=== PATIENT | female | born 1965 | race Caucasian/White ===

== ENCOUNTER 2018-10-24 10:13 | Observation (INO) ==
--- NOTE | 2018-10-24 10:56 | ED ---
HPI General Chief complaint: Chest Pain Stated complaint: Cardiac Complaint Time Seen by Provider: 10/24/18 10:37 Source: patient and RN notes reviewed Mode of arrival: ambulatory History of Present Illness HPI narrative: 53yF sent in from [facility] for abnormal EKG. The patient reports several weeks of substernal/ left-sided chest "pressure" which occurs on exertion, lasts for several minutes and improves with rest, radiates to her left shoulder, associated with dyspnea, palpitations, and lightheadedness. Denies fever, cough, or nausea/ vomiting. Family history significant for father with CAD (uncertain age). Related Data Home Medications Medication Instructions Recorded Confirmed Depakote 400 mg PO BID 10/24/18 10/24/18 cariprazine [Vraylar] 4.5 mg PO DAILY 10/24/18 10/24/18 hydroxyzine pamoate [Vistaril] 50 mg PO QID PRN 10/24/18 10/24/18 levothyroxine 200 mcg PO DAILY 10/24/18 10/24/18 trazodone 200 mg PO HS PRN 10/24/18 10/24/18 Allergies Allergy/AdvReac Type Severity Reaction Status Date / Time No Known Allergies Allergy Verified 10/24/18 10:23 Review of Systems ROS: all other systems reviewed are negative [facility] Medical History Medical History Aborted ectopic (Acute) Bipolar disorder (Acute) COPD (chronic obstructive pulmonary disease) (Acute) Surgical History Surgical History History of cholecystectomy (Acute) Social History Social History Substance History: No History of Abuse Smoking Status: Current every day smoker Tobacco Type: Cigarettes How Often Do You Have a Drink Containing Alcohol: Never Recent Travel in [facility] within the Last 8 Weeks: No Recent Out of Country Travel within the Last 8 Weeks: No Immunization History Tetanus Immunization: Unsure Exam Const General: healthy appearing and no acute distress HENMT Face and sinus: normal facial exam Eyes General: appearance normal, both eyes and all related structures Chest Chest: normal inspection of the chest Resp Effort & Inspection: normal respiratory effort Auscultation: no rhonchi and no wheezes Cardio Rate: regular rate Rhythm: regular rhythm GI Inspection: non-distended Palpation: soft and nontender Skin General: no rashes or lesions noted Neuro General: alert, awake, oriented x3 and no focal motor deficits Psych Affect: normal affect Course Initial Documented Vital Signs Temperature 98.5 F 10/24/18 10:20 Pulse Rate 75 10/24/18 10:20 Respiratory Rate 18 10/24/18 10:20 Blood Pressure 125/76 10/24/18 10:20 Pulse Oximetry 100 10/24/18 10:20 Last Documented Vital Signs Temperature 98.5 F 10/24/18 10:20 Pulse Rate 60 10/24/18 12:07 Respiratory Rate 20 10/24/18 12:07 Blood Pressure 116/56 L 10/24/18 12:07 Pulse Oximetry 96 10/24/18 12:07 Clinical Decision Support HEART Score Questions History: Moderately suspicious EKG: Non-specific repolarization disturbance Age: 45-64 years Risk Factors: 1-2 Risk Factors Initial Troponin: Normal Limit Heart Score HEART Score: 4 Medical Decision Making [facility] Narrative Medical decision making narrative: Assessment: 53yF presenting with chest pain and abnormal EKG Plan: EKG and monitor Labs CXR Addendum: Patient reports no chest pain at present, trop negative x 1 but abnormal EKG. HEART score 4. I explained these results to the patient as well as plan to keep for observation in center. She understands and agrees with plan. Medical Screen Exam Complete: Yes Emergency Medical Condition: Yes Differential Diagnosis Differential Diagnosis: Differential diagnosis includes, but is not limited to: ACS, arrhythmia, pneumonia, pleural effusion, pleuritis Lab Data Lab results reviewed: Yes I reviewed the patient's lab results. Result diagrams: 10/24/18 10:49 10/24/18 10:49 Lab Results 10/24/18 10/24/18 Range/Units 10:49 10:49 WBC 7.6 (4.0-11.0) th/mm3 RBC 4.15 (4.00-5.30) mil/mm3 Hgb 14.4 (11.6-15.3) gm/dL Hct 41.2 (35.0-46.0) % MCV 99.1 (80.0-100.0) fL MCH 34.6 H (27.0-34.0) pg MCHC 34.9 (32.0-36.0) % RDW 15.8 (11.6-17.2) % Plt Count 231 (150-450) th/mm3 MPV 9.0 (7.0-11.0) fL Neut % (Auto) 56.7 (16.0-70.0) % Lymph % (Auto) 31.8 (9.0-44.0) % [place] % (Auto) 3.7 (0.0-8.0) % Eos % (Auto) 7.6 H (0.0-4.0) % Baso % (Auto) 0.2 (0.0-2.0) % Neut # (Auto) 4.3 (1.8-7.7) th/mm3 Lymph # (Auto) 2.4 (1.0-4.8) th/mm3 [place] # (Auto) 0.3 (0.0-0.9) th/mm3 Eos # (Auto) 0.6 H (0.0-0.4) th/mm3 Baso # (Auto) 0.0 (0.0-0.2) th/mm3 WBC Differential . Differential Comment Auto diff final Sodium 138 (136-145) meq/L Potassium 3.8 (3.5-5.1) meq/L Chloride 101 (98-107) meq/L Carbon Dioxide 29.3 (21.0-32.0) meq/L Anion Gap 8 (5-15) meq/L BUN 11 (7-18) mg/dL Creatinine 1.47 H (0.50-1.00) mg/dL Estimated GFR 37 L (>89) mL/min Random Glucose 109 H (74-106) mg/dL Calcium 9.1 (8.5-10.1) mg/dL Total Bilirubin 0.7 (0.2-1.0) mg/dL AST 28 (15-37) U/L ALT 19 (10-53) U/L Alkaline Phosphatase 91 (45-117) U/L Troponin I Less than 0.02 L (0.02-0.05) ng/mL Total Protein 8.3 H (6.4-8.2) g/dL Albumin 4.7 (3.4-5.0) g/dL Imaging Data Radiologist's impression: Chest X-Ray 10/24/18 10:28 CONCLUSION: No acute disease ECG Data Attestation: I personally reviewed and interpreted this ECG as follows: Interpretation: Rate: 65 BPM Rhythm: Sinus [place]: Normal Intervals: Normal intervals, no blocks, QTc 200 ms Q waves: II, III, aVF T waves: Inverted in V3-V6, aVL ST segments: <1 mm depression in V4-V6 Impression: Abnormal EKG, no dynamic changes between 10:28 and 10:41 EKGs. No previous EKG available for comparison. Discharge Plan Discharge Disposition Patient Disposition: ED Admit(ED Internal Use Only) Discharge Condition Condition: Stable Discharge Details Diagnosis: Chest pain Physicians Team ED Provider: Piedad Ramos Primary Care Provider: Primary Care Luz Elena Winchester Rxs /Orders / Referrals /Forms Prescriptions: No Action hydroxyzine pamoate [Vistaril] 50 mg Capsule 50 mg PO QID PRN (Reason: Anxiety) RF: 0 trazodone 100 mg Tablet 200 mg PO HS PRN (Reason: Insomnia) RF: 0 levothyroxine 200 mcg Tablet 200 mcg PO DAILY RF: 0 cariprazine [Vraylar] 4.5 mg Capsule 4.5 mg PO DAILY RF: 0 Depakote 200 mg 400 mg PO BID RF: 0 Discharge Instructions Patient Printed Instructions: Chest Pain (ED) Discharge Interventions Interventions: Vital Signs Last Done: 10/24/18 10:56 Status ED Status: Admitted Observation Patient
[2018-10-24 10:58] LABS: Baso % (Auto) 0.2 % (0.0-2.0); Eos # (Auto) 0.6 th/mm3 (0.0-0.4); Eos % (Auto) 7.6 % (0.0-4.0); Hematocrit 41.2 % (35.0-46.0); Hemoglobin 14.4 gm/dL (11.6-15.3); Lymph # (Auto) 2.4 th/mm3 (1.0-4.8); Lymph % (Auto) 31.8 % (9.0-44.0); Mean Corpuscular HGB Conc 34.9 % (32.0-36.0); Mean Corpuscular Hemoglobin 34.6 pg (27.0-34.0); Mean Corpuscular Volume 99.1 fL (80.0-100.0); Mono # (Auto) 0.3 th/mm3 (0.0-0.9); Mono % (Auto) 3.7 % (0.0-8.0); Neut # (Auto) 4.3 th/mm3 (1.8-7.7); Neut % (Auto) 56.7 % (16.0-70.0); Platelet Count 231 th/mm3 (150-450); Red Blood Count 4.15 mil/mm3 (4.00-5.30); Red Cell Distribution Width 15.8 % (11.6-17.2); White Blood Count 7.6 th/mm3 (4.0-11.0)
--- NOTE | 2018-10-24 11:08 | XR ---
EXAM DATE: 10/24/2018 11:01 AM EST AGE/SEX: 53 years / Female INDICATIONS: Chest pain x 3 days. CLINICAL DATA: This is the patient's initial encounter. Patient reports that signs and symptoms have been present for 1 day and indicates a pain score of 4/10. MEDICAL/SURGICAL HISTORY: None. None. COMPARISON: No prior exams available for comparison. FINDINGS: A single AP view of the chest demonstrates the lungs to be symmetrically aerated without evidence of mass, infiltrate or effusion. The cardiomediastinal contours are unremarkable. Osseous structures a re intact. CONCLUSION: No acute disease Electronically signed by: Jaime Davis MD Board Certified Radiologist 10/24/2018 11:07 AM EST
[2018-10-24 11:20] LABS: Alanine Aminotransferase 19 U/L (10-53); Albumin 4.7 g/dL (3.4-5.0); Anion Gap 8 meq/L (5-15); Aspartate Aminotransferase 28 U/L (15-37); Blood Urea Nitrogen 11 mg/dL (7-18); Calcium 9.1 mg/dL (8.5-10.1); Carbon Dioxide 29.3 meq/L (21.0-32.0); Chloride 101 meq/L (98-107); Glomerular Filtration Rate 37 mL/min (>89); Glucose,Random 109 mg/dL (74-106); Potassium 3.8 meq/L (3.5-5.1); Sodium 138 meq/L (136-145)
[2018-10-24 11:24] LABS: Alkaline Phosphatase 91 U/L (45-117); Total Protein 8.3 g/dL (6.4-8.2)
[2018-10-24] MEDS ORDERED: Acetaminophen 500 MG Tablet PO PRN (12:13)
--- NOTE | 2018-10-24 14:50 | P.HPCA ---
History of Present Illness Primary Care Physician: [facility] Chief Complaint: Abnormal EKG History of Present Illness: 53-year-old female with history of COPD, bipolar, hypothyroid is him, and continues to smoke presents to the emergency room as directed by her primary care provider. Recently became insured and was establishing with a new primary care provider. Reports increase dyspnea, productive cough with green sputum, and more intense feeling of "an elephant sitting on my chest" for 3 weeks. Intense substernal pressure occurs generally after a "coughing fit" generally lasting 30 minutes. Associated symptoms include dizziness, slight fever, and chills. Decreased tobacco use to half pack daily down from 1 pack daily. During PCP visit an EKG found to be abnormal and was directed to go to the ER. No known coronary artery disease, past myocardial infarction, hypertension, hyperlipidemia, or diabetes. Not taken any medications for 6 months. Past cardiac testing None Social history No known coronary artery disease, hypertension, hyperlipidemia, or diabetes. Lifelong smoker. Current 1/2 pack day smoker, decreased from 1 pack daily. denies any alcohol or recreational drug use. Endorses sedentary lifestyle due to respiratory status. Family history Noncontributory for early onset cardiovascular disease. - Diagnosis (1) Chest pain (2) Tobacco use (3) COPD (chronic obstructive pulmonary disease) (4) Hypothyroidism Review of Systems All other systems reviewed negative except as stated in HPI PMFSH - History History Provided By: Patient - Medical History Medical History: Medical History (Last Updated 10/24/18 @ 15:07 by YVETTE Williamson) Aborted ectopic Bipolar disorder COPD (chronic obstructive pulmonary disease) Hypothyroidism Morbidly obese Spinal stenosis - Surgical History Surgical History: Surgical History (Last Reviewed 10/24/18 @ 10:58 by Piedad Ramos DO) History of cholecystectomy - Tobacco History Second Hand Smoke Exposure: Yes Tobacco Use In Past 30 Days: Yes (10 Cigarettes per day) Smoking Status: Current every day smoker Tobacco Type: Cigarettes Packs Per Day: 0.5 - Alcohol History How Often Do You Have a Drink Containing Alcohol: Never (quit drinking 2 years ago, reports past alcohol abuse) - Substance Use History Substance History: Active Abuse - Substance Use Type Marijuana Status: Active Route Used: Inhalation Frequency: Once a week Reason for Use: Calm Down, Sleep - Travel History Recent Travel in the [facility] Within the Last 8 Weeks: No Recent Travel Out of the Country Within the Last 8 Weeks: No - Immunization History Tetanus Immunization: Unsure Medications and Allergies Active Medications: Active Medications Acetaminophen (Tylenol) 500 mg PO Q4H PRN PRN Reason: HEADACHE Nitroglycerin (Nitrostat Sl) 0.4 mg SL Q5M PRN PRN Reason: CHEST PAIN Ondansetron HCl (Zofran Inj) 4 mg IV.PUSH Q6H PRN PRN Reason: NAUSEA Sodium Chloride (Ns Flush) 2 ml IV.FLUSH PRN PRN PRN Reason: FLUSH AFTER USING IV ACCESS Sodium Chloride (Ns Flush) 2 ml IV.FLUSH BID JEREMIAH Allergies Allergy/AdvReac Type Severity Reaction Status Date / Time No Known Allergies Allergy Verified 10/24/18 10:23 Home Medications Medication Instructions Recorded Confirmed Type Depakote 400 mg PO BID 10/24/18 10/24/18 History cariprazine [Vraylar] 4.5 mg PO DAILY 10/24/18 10/24/18 History hydroxyzine pamoate [Vistaril] 50 mg PO QID PRN 10/24/18 10/24/18 History levothyroxine 200 mcg PO DAILY 10/24/18 10/24/18 History trazodone 200 mg PO HS PRN 10/24/18 10/24/18 History Exam Vital signs: Vital Signs 10/24/18 10:20 10/24/18 10:43 10/24/18 10:56 Temperature 98.5 F Pulse Rate 75 71 67 Respiratory Rate 18 13 20 Blood Pressure 125/76 158/81 H 139/75 Pulse Oximetry 100 97 97 10/24/18 11:35 10/24/18 12:07 10/24/18 13:35 Temperature 98.0 F Pulse Rate 63 60 59 L Respiratory Rate 20 20 16 Blood Pressure 127/75 116/56 L 103/60 Pulse Oximetry 99 96 99 Intake & Output 10/23/18 10/24/18 10/24/18 18:59 06:59 18:59 Weight 105.233 kg Narrative: GENERAL: Alert WN, WD, NAD, pleasant, morbidly obese, female who appears older than stated age HEAD: NC, AT EYES: Sclera clear, conjunctiva without injection, pupils equal and round ENT: Mucous membranes pink and moist NECK: Supple, no masses, trachea midline CV: Regular bradycardic rhythm without murmur, rub, gallop, no JVD, S1-S2. RESP: Diminished lungs throughout bilateral, expiratory wheeze upper lobes, no crackles. Symmetrical chest rise, nonlabored, becomes dyspneic during conversation however able to speak in full sentences ABD: Soft, NT, ND, no masses, positive bowel tones EXT: Pulses +2x4, no dependent edema MS: Normal tone x4 extremities, nontender, no obvious deformities, full range of motion, difficult for self repositioning due to body habitus NEURO: Motor strength 5 PSYCH: A+O x3, flat affect, appropriate speech, mood, insight and judgment SKIN: Normal turgor, normal texture, no lesions, no rashes, brisk cap refill, even hair distribution, solar damage Results 10/24/18 10:49 10/24/18 10:49 Cardiac Enzymes 10/24/18 10/24/18 Range/Units 10:49 13:45 AST 28 (15-37) U/L Troponin I Less than 0.02 L Less than 0.02 L (0.02-0.05) ng/mL CBC 10/24/18 Range/Units 10:49 WBC 7.6 (4.0-11.0) th/mm3 RBC 4.15 (4.00-5.30) mil/mm3 Hgb 14.4 (11.6-15.3) gm/dL Hct 41.2 (35.0-46.0) % Plt Count 231 (150-450) th/mm3 Neut # (Auto) 4.3 (1.8-7.7) th/mm3 Lymph # (Auto) 2.4 (1.0-4.8) th/mm3 [place] # (Auto) 0.3 (0.0-0.9) th/mm3 Eos # (Auto) 0.6 H (0.0-0.4) th/mm3 Baso # (Auto) 0.0 (0.0-0.2) th/mm3 Comprehensive Metabolic Panel 10/24/18 Range/Units 10:49 Sodium 138 (136-145) meq/L Potassium 3.8 (3.5-5.1) meq/L Chloride 101 (98-107) meq/L Carbon Dioxide 29.3 (21.0-32.0) meq/L BUN 11 (7-18) mg/dL Creatinine 1.47 H (0.50-1.00) mg/dL Calcium 9.1 (8.5-10.1) mg/dL AST 28 (15-37) U/L ALT 19 (10-53) U/L Alkaline Phosphatase 91 (45-117) U/L Total Protein 8.3 H (6.4-8.2) g/dL Albumin 4.7 (3.4-5.0) g/dL Intake and Output 10/23/18 10/24/18 10/24/18 22:59 06:59 14:59 Other: Weight 105.233 kg Patient Weight 10/25/18 06:59 Weight 105.233 kg - Imaging and Cardiology Imaging: Impressions Chest X-Ray 10/24/18 10:28 CONCLUSION: No acute disease EKG interpretations - Dysrhythmias Sinus rhythms and dysrhythmias: sinus bradycardia (< 50 bpm) (Low voltage, axis indeterminate, right bundle branch block, first-degree AV block) Caprini VTE Risk Assessment Caprini VTE Risk Assessment: No/Low Risk (score <= 1) Caprini Risk Assessment Model: Point Value = 1 Point Value = 2 Point Value = 3 Point Value = 5 Age 41-60 Minor surgery BMI > 25 kg/m2 Swollen legs Varicose veins or History of unexplained or recurrent spontaneous Oral contraceptives or hormone replacement Sepsis (< 1 month) Serious lung disease, including pneumonia (< 1 month) Abnormal pulmonary function Acute myocardial infarction Congestive heart failure (< 1 month) History of inflammatory bowel disease Medical patient at bed rest Age 61-74 Arthroscopic surgery Major open surgery (> 45 min) Laparoscopic surgery (> 45 min) Malignancy Confined to bed (> 72 hours) Immobilizing plaster cast Central venous access Age >= 75 History of VTE Family history of VTE Factor V Leiden Prothrombin [id number] Lupus anticoagulant Anticardiolipin antibodies Elevated serum homocysteine Heparin-induced thrombocytopenia Other congenital or acquired thrombophilia Stroke (< 1 month) Elective arthroplasty Hip, pelvis, or leg fracture Acute spinal cord injury (< 1 month) Prophylaxis Regimen: Total Risk Factor Score Risk Level Prophylaxis Regimen 0-1 Low Early ambulation 2 Moderate Order ONE of the following: *Sequential Compression Device (SCD) *Heparin 5000 units SQ BID 3-4 Higher Order ONE of the following medications: *Heparin 5000 units SQ TID *Enoxaparin/Lovenox 40 mg SQ daily (WT < 150 kg, CrCl > 30 mL/min) *Enoxaparin/Lovenox 30 mg SQ daily (WT < 150 kg, CrCl > 10-29 mL/min) *Enoxaparin/Lovenox 30 mg SQ BID (WT < 150 kg, CrCl > 30 mL/min) AND/OR *Sequential Compression Device (SCD) 5 or more Highest Order ONE of the following medications: *Heparin 5000 units SQ TID (Preferred with Epidurals) *Enoxaparin/Lovenox 40 mg SQ daily (WT < 150 kg, CrCl > 30 mL/min) *Enoxaparin/Lovenox 30 mg SQ daily (WT < 150 kg, CrCl > 10-29 mL/min) *Enoxaparin/Lovenox 30 mg SQ BID (WT < 150 kg, CrCl > 30 mL/min) AND *Sequential Compression Device (SCD) Assessment and Plan - Assessment (1) Chest pain Code(s): R07.9 - Chest pain, unspecified Status: Acute Plan: Admitted chest pain center. Rule out ACS with 3 sets of EKGs and cardiac enzymes. Will be seen and evaluated by Dr. Lor Nation. First 2 troponins unremarkable. No EKG to compare. No current chest pain. Likely will proceed with Lexiscan in a.m. Further disposition to follow after evaluation by prop drawer. (2) Tobacco use Code(s): Z72.0 - Tobacco use Status: Chronic Plan: Strongly encouraged and stressed importance of tobacco cessation. Instructed to quit smoking. (3) COPD (chronic obstructive pulmonary disease) Code(s): J44.9 - Chronic obstructive pulmonary disease, unspecified Status: Acute Plan: Albuterol every 6 hours scheduled and every 2 as needed as needed for wheezing/ shortness of breath. Strongly encouraged her to quit smoking. Follow-up with primary care provider upon discharge. Start Azithromycin due to reported continue chest congestion, productive cough, low grade fever, and reports chills. (4) Hypothyroidism Code(s): E03.9 - Hypothyroidism, unspecified Status: Chronic Plan: Continue levothyroxine. Add TSH level. H&P: Quality - VTE Deep Vein Thrombosis/Pulmonary Embolism Present on Admission: No (3) COPD (chronic obstructive pulmonary disease) Qualifiers: Emphysema type: unspecified (4) Hypothyroidism Qualifiers: Hypothyroidism type: unspecified Qualified Code(s): E03.9 - Hypothyroidism, unspecified
[2018-10-24 17:48] LABS: Creatine Kinase 446 U/L (26-192)
[2018-10-24 18:00] LABS: CKMB Percent 1.1 % (0.0-4.0); Creatine Kinase MB 4.9 ng/mL (0.5-3.6)
[2018-10-24] MEDS ORDERED: Azithromycin 250 MG Tablet PO ONE (18:45)
[2018-10-24 19:15] LABS: Creatine Kinase 437 U/L (26-192)
--- NOTE | 2018-10-24 20:26 | ECG ---
Date Performed: 10/24/2018 Time Performed: 10:28:00 PTAGE: 53 years EKG: Sinus rhythm LOW QRS VOLTAGE PATTERN CONSISTENT WITH PULMONARY DISEASE INFERIOR MYOCARDIAL INFARCTION MARKED ST E LEVATION, CONSIDER SEPTAL INJURY ACUTE [place] PREVIOUS TRACING : 10/24/2018 08.28 DOCTOR: Jorge Luis Carney Interpretating Date/Time 10/24/2018 20:24:28
[2018-10-25] MEDS ORDERED: Regadenoson Inj 0.4 MG/5 ML Syringe IV.PUSH ONE (10:02)
--- NOTE | 2018-10-25 12:00 | NM ---
EXAM DATE: 10/25/2018 11:39 AM EST AGE/SEX: 53 years / Female INDICATIONS:Angina. . Intense substernal chest pressure. CLINICAL DATA: This is the patient's initial encounter. Patient reports that signs and symptoms have been present for 2 weeks and indicates a pain score of 3/10. MEDICAL/SURGICAL HISTORY: Chronic obstructive pulmonary disease. Spinal stenosis. Morbid obesi ty, bipolar disorder. Cholecystectomy. COMPARISON: No prior exams available for comparison. DOSE: 11.2 mCi Tc 99m Myoview at rest 35 mCi [id number] at stress 0.4 mg Lexiscan STRESS SYMPTOMS: Dyspnea and nausea. EJECTION FRACTION: 64 % TECHNIQUE: The patient underwent pharmacologic stress with infusion of prescribed dose. Continuous ECG tracing was monitored during stress. Gated SPECT imaging was performed after stress and conventi onal SPECT imaging was performed at rest. The examination was performed on a SPECT/CT scanner, both attenuation and non-corrected datasets were reviewed. FINDINGS: Distribution: The maximum perfused segment at stress is in the inferior wall. Perfusion Study: The pattern of perfusion at stress is within normal limits. Gated Study: There are intact wall motion and wall thickening without hypokinetic or dyskinetic segm ents. The ejection fraction is calculated at 64%. RISK CATEGORY: Low (<1% Annual Mortality Rate) CONCLUSION: 1. Negative examination. 2. No evidence of fixed or reversible perfusion abnormalities. Electronically signed by: Castillo Dominguez MD Board Certified Radiologist 10/25/2018 11:59 AM EST
--- NOTE | 2018-10-25 14:18 | ECG ---
Date Performed: 10/24/2018 Time Performed: 17:24:41 PTAGE: 53 years EKG: ATRIAL FIBRILLATION MARKED RIGHT AXIS DEVIATION RIGHT BUNDLE BRANCH BLOCK MODERATE T-WAVE A BNORMALITY, CONSIDER LATERAL ISCHEMIA ABNORMAL ECG Low voltage QRS is widened somewhat since prior tr acing PREVIOUS TRACING : 10/24/2018 15.03 DOCTOR: Atif Ramos Interpretating Date/Time 10/25/2018 14:17:19
--- NOTE | 2018-10-25 14:19 | ECG ---
Date Performed: 10/24/2018 Time Performed: 15:03:03 PTAGE: 53 years EKG: Sinus rhythm WITH FIRST DEGREE AV BLOCK MARKED RIGHT AXIS DEVIATION RIGHT BUNDLE BRANCH BLOCK ABNORMAL ECG PREVIOUS TRACING : 10/24/2018 10. DOCTOR: Atif Ramos Interpretating Date/Time 10/25/2018 14:18:51
--- NOTE | 2018-10-25 14:25 | TR ---
Date Performed: 10/25/2018 Time Performed: 10:05:48 DOCTOR: Atif Ramos DRUG LIST: CLINICAL HISTORY: CHEST PAIN REASON FOR TEST: CHEST PAIN REASON FOR ENDING: OBSERVATION: CONCLUSION: Lexiscan stress test was performed under standard four minute protocol. Radionuclide was injected one minute prior to ending the test. No electrocardiographic abormalities were present to suggest ischemia. Nuclear imaging and interpretation are pending. COMMENTS:
== END 2018-10-25 14:34 | disposition home or self-care (01) ==
LOC: NEPE 10:13 → NEDA 10:13 → NEPHCDU 13:35
PROVIDERS: ADMIT Internal Medicine Interventional Cardiology; ATTEND Internal Medicine Interventional Cardiology
DX: F17.210 Nicotine dependence, cigarettes, uncomplicated; R42 Dizziness and giddiness; Z82.49 Family history of ischemic heart disease and other diseases of the circulatory system; R07.89 Other chest pain; F31.9 Bipolar disorder, unspecified; Z79.890 Hormone replacement therapy; Z90.49 Acquired absence of other specified parts of digestive tract; J44.9 Chronic obstructive pulmonary disease, unspecified; E03.9 Hypothyroidism, unspecified; R94.31 Abnormal electrocardiogram [ECG] [EKG]
CPT/HCPCS: 71010; 71045; 78452; 80053; 82550; 82552; 84443; 84484; 85025; 93005; 93017; 94640; 94664; 94665; 99285; A9502; G0378; J2785; Q9969